=== PATIENT | male | born 1970 ===

== ENCOUNTER 2025-04-27 09:04 | Emergency (ER) | payer BC, SELFPAY ==
--- NOTE | ~2025-04-27 | CT_ITS ---
EXAMINATION: CT LUMBAR SPINE WITHOUT CONTRAST CLINICAL INFORMATION: Low back pain. COMPARISON: No prior. TECHNIQUE: CT imaging of the lumbar spine was done without IV contrast, utilizing spiral technique. Sagittal, coronal, and thin section axial reformatted images were constructed from the axial data set. This CT examination was performed using dose optimization techniques as appropriate, variously including the following: *Automated exposure control *Adjustment of mA and/or kV according to patient size (this includes techniques or standardized protocols for targeted exams where dose is matched to indication/reason for exam; i.e. extremities or head) *Use of iterative reconstruction technique FINDINGS: CORONAL ALIGNMENT: -There is a mild right convex scoliosis, apex at L2-3. SAGITTAL ALIGNMENT: - There is a normal lumbar lordosis. -There is no significant subluxation identified. LUMBOSACRAL JUNCTION: -Normal. There are 5 [id number] lumbar-type vertebral bodies. VERTEBRAL BODIES/BONE: -There is no fracture, compression deformity, or suspicious bone lesion. There is normal facet alignment bilaterally. There are multilevel hypertrophic degenerative facet changes present most significant at L3-S1. No pars defects. DISCS: -Severe disc degeneration is present L5-S1. -Mild to moderate disc degeneration is present at the other levels. SPINAL CANAL: -No abnormal developmental findings. AXIAL DISC SPACE IMAGES: T12-L1: No significant central canal or neural foraminal narrowing. L1-L2: Shallow disc bulging is present extending into both foraminal zones. There is mild central canal stenosis. There is mild bilateral neural foraminal stenosis. L2-L3: There is a diffuse disc osteophytic ridge complex extending into both foraminal zones concentrically. There are mild hypertrophic degenerative facet changes bilaterally. There is mild to moderate central canal stenosis, moderate bilateral subarticular recess stenosis, and mild bilateral neural foraminal stenosis. L3-L4: Likely arising from the L3-4 disc, there is a left lateral extrusion of disc material with cephalad migration to the upper one third of L3. This appears to cause mass effect upon the traversing left L3 root and may be responsible for L3 radiculopathy on the left. Otherwise, there is a diffuse disc osteophytic ridge complex present extending into both foraminal zones, moderate to severe hypertrophic degenerative facet changes bilaterally, posterior ligamentous thickening/infolding, resulting in moderate central canal stenosis, severe right and moderate to severe left subarticular recess stenosis, and moderate left greater than right neural foraminal stenosis. L4-L5: There is a central broad-based disc protrusion, moderate hypertrophic degenerative facet changes bilaterally, posterior ligamentous thickening/infolding resulting in moderate to severe central canal stenosis, severe bilateral subarticular recess stenosis left greater than right, and moderate left greater than right neural foraminal stenosis. L5-S1: There is a diffuse disc osteophytic ridge complex which is asymmetrically prominent into the right neural foramen and right lateral recess. This minimally deviates the traversing right S1 nerve root. There is no significant central canal stenosis. There is mild bilateral neural foraminal stenosis. IMAGED SI JOINTS: -Mild degenerative arthrosis bilaterally. PARAVERTEBRAL AND INCLUDED EXTRASPINAL SOFT TISSUES: -There is a 3 mm nonobstructing calculus in the left kidney upper pole. There is a left parapelvic renal cyst. The right kidney appears normal. -Aorta is nonaneurysmal. -Remainder of the imaged soft tissues appear normal. CT/CT lumbar spine wo IV con IMPRESSION: 1. No acute bony findings of the lumbar spine. 2. Moderate multilevel lumbar spondylosis, as detailed above. 3. There is a left lateral disc extrusion likely arising from the L3-4 disc with superior migration to the superior third of L3. This is likely causing mass effect upon the traversing and exiting left L3 nerve root. Correlate for left L3 radiculopathy. 4. There is moderate central canal stenosis at L3-4, and moderate to severe central canal stenosis at L4-5. See above for further detail. Electronically signed by: Teodoro Robertson MD 04/27/2025 10:21 AM EDT
[2025-04-27 09:10] VITALS: BP 128/88; PULSE 102; PULSE 104; RESP 13; O2SAT 98; BMI 26.3
--- NOTE | 2025-04-27 09:10 | ED_ITS ---
HPI - Abdominal Pain General Chief Complaint: Back Pain/Injury Stated Complaint: Back pain Time Seen by Provider: 04/27/25 09:10 Source: patient and EMS Mode of arrival: EMS Limitations: no limitations History of Present Illness ED Provider: HPI narrative: 54-year-old male with history of cardiomyopathy, status post cardiac transplant 10-15 years ago, presenting with back pain that started yesterday, no fevers or chills no numbness in the groin, he has left-sided back pain radiating to his leg, he went to urgent care yesterday and received cyclobenzaprine, some of the pain improved a him went to the gym today and pain returned and he was having a hard time moving, he called EMS was given 100 mcg of fentanyl IV feeling better. He states he has no chest pain no shortness of breath, he is on immunosuppressive medications without change low-dose steroid, including cyclosporine and Jardiance. No other trauma reported, no IV drug use, no recent surgeries or injections to the area. Related Data Previous Rx's ?Medication ?Instructions ?Recorded lidocaine 5 % topical patch 1 patch topical DAILY #15 ea 04/27/25 methylprednisolone 4 mg tablets in 4 mg PO DAILY #21 e a 04/27/25 a dose pack (Medrol (Beto)) oxycodone 5 mg tablet 5 mg PO Q6H PRN pain 4 days #14 04/27/25 tabs Allergies Allergy/AdvReac Type Severity Reaction Status Date / Time No Known Allergies Allergy Verified 04/27/25 09:21 Review of Systems Constitutional: Reports as per [facility] Social History Social History Advance Directives: No Advance Directives Information Provided: Yes Physical Exam ED Vital Signs: Vital Signs - 24 hr 04/27/25 09:10 04/27/25 10:00 Temperature 98 F Pulse Rate 104 H 101 H Respiratory Rate 13 18 Blood Pressure 139/90 H Pulse Oximetry 98 99 Oxygen Delivery Method Room Air Room Air BMI result Body Mass Index 26.3 Const Other: General: ?Appears of stated age ? ?PERRLA, EOMI, MMM, ? Neck: Supple, no LAD ? ?CV: RRR, no obvious murmurs appreciated ? ?Resp: ?No wheezing rales rhonchi no stridor moving air well ? Abd: ?Bowel sounds are present, no tenderness no rebound no rigidity ? ?MSK: FROM, strength 5/5 all extremities, patient has scoliosis, no midline tenderness, no tenderness over the SI, no motor or sensory deficits bilateral lower extremities, scar from prior right quad surgery ? Skin: Warm, dry, intact, ? ?Neuro: ?Alert and oriented x3, moving upper and lower extremities symmetrically, no obvious facial asymmetry noted, cranial nerves 2-12 intact Medical Decision Making Medical Decision Making [facility] Narrative: 9:36 AM 04/27/2025 (Dr. Bryson Galindo): Because patient has risk factors for immunosuppression, inflammatory conditions are considered therefore we will obtain blood work, we will also obtain CT to evaluate for any destructive lesions or any evidence for underlying osteomyelitis, he has no neurologic deficits nothing to suspect cauda equina that would necessitate emergent MRI 11:18 AM 04/27/2025 (Dr. Bryson Galindo): Patient re-evaluated, I have discussed CT findings with the him, his pain is much improved, see my discharge instructions Differential Diagnosis Differential Diagnoses: The differential diagnosis associated with the presentation includes (Diskitis, osteomyelitis, spinal epidural abscess, cauda equina, musculoskeletal pain) Admission/Observation Consideration of admission/observation: Escalation of care including admission/observation considered Lab Data [facility] Lab Attestation statement: I reviewed the patient's lab results. 04/27/25 09:53 04/27/25 09:53 Labs: Lab Results 04/27/25 Range/Units 09:53 WBC 5.8 (4.8-10.8) X10*3/uL RBC 5.50 (4.60-5.80) X10*6/uL Hgb 16.0 (14.0-18.0) g/dl Hct 45.9 (42.0-52.0) % MCV 83.5 (80.0-98.0) fL MCH 29.1 (27.0-33.0) pg MCHC 34.9 (31.0-36.0) g/dl RDW 12.8 (11.0-16.0) % Plt Count 159 L (160-400) X10*3/uL MPV 8.7 L (9.4-12.4) fL Immature Gran % (Auto) 0.3 (0.0-0.4) % Neut % (Auto) 83.6 H (45-73) % Lymph % (Auto) 8.5 L (20-40) % [place] % (Auto) 7.3 (2-11) % Eos % (Auto) 0.3 (0-4) % Baso % (Auto) 0.0 (0-2) % Lymph # (Auto) 0.5 L (1.2-4.9) X10*3/uL [place] # (Auto) 0.4 (0.1-1.2) X10*3/uL Eos # (Auto) 0.0 (0.0-0.4) X10*3/uL Baso # (Auto) 0.0 (0.0-0.2) X10*3/uL Abs Immat Gran (auto) 0.02 (0.00-0.03) X10*3/uL Absolute Neuts (auto) 4.8 (2.0-8.3) x10*3/uL Absolute Nucleated RBC 0.000 (0.0-0.012) X10*3/uL Nucleated RBC % (auto) 0.0 (0.0-0.2) /100WBC Sodium 139 (135-145) mmol/L Potassium 3.9 (3.3-5.1) mmol/L Chloride 106 (96-108) mmol/L Carbon Dioxide 22 (22-29) mmol/L Anion Gap 15 (12-20) BUN 16 (9-16) mg/dL Creatinine 1.22 (0.5-1.4) mg/dL Estim Creat Clear Calc 76.8 Estimated GFR > 60 Random Glucose 90 (60-115) mg/dL Calcium 9.6 (8.4-10.2) mg/dL Total Bilirubin 1.3 H (0.0-1.0) mg/dL AST 32 (5-37) U/L ALT 24 (0-40) U/L Alkaline Phosphatase 59 (39-117) U/L Total Protein 6.9 (6.5-8.0) g/dL Albumin 4.5 (3.5-5.0) g/dL Radiology Impression Discussion of test interpretation with radiology: I have reviewed the radiologist's reading. ( CT/CT lumbar spine wo IV con IMPRESSION: 1. No acute bony findings of the lumbar spine. 2. Moderate multilevel lumbar spondylosis, as detailed above. 3. There is a left lateral disc extrusion likely arising from the L3-4 disc with superior migration to the superior third of L3. ) Tests considered The following testing was considered but not selected: Lumbosacral MRI Prescription Management I considered prescription management with: Pain Medication Chronic Conditions Patient?s care impacted by: Diabetes and Other (Heart transplant) Medications Administered Discontinued Medications Generic Name Dose Route Start Last Admin Trade Name Freq PRN Reason Stop Dose Admin Ketorolac Tromethamine 15 mg 04/27/25 09:32 04/27/25 10:03 Ketorolac Tromethamine 15 Mg/Ml Vial IVPUSH 04/27/25 09:33 15 mg ONCE ONE Administration Oxycodone HCl 10 mg 04/27/25 09:32 04/27/25 10:03 Oxycodone Hcl Immed Release 5 Mg Tablet PO 04/27/25 09:33 10 mg ONCE ONE Administration Critical Care Time Critical Care Time Critical Care Time: Yes Total Critical Care Time: 35 Attestation: Time is exclusive of separately billable procedures. Time includes: direct patient care, patient reassessment, coordination of patient care, interpretation of data (laboratory data, pulse oximetry, arterial blood gases and chest xrays), review of patient's medical records, medical consultation and documentation of patient care. Procedures excluded from critical care time: central intravenous line placement and electrocardiography. Discharge Plan Discharge Clinical Impression: Lumbar radiculopathy Patient Disposition: Home, Self-Care Instructions: Lumbar Radiculopathy (ED) Additional Instructions: Please see below your CT findings, essentially the pain on the left side is consistent with L3 radiculopathy, I recommend that you start taking 975 mg of Tylenol every 6 hours around the clock for the next 2 days, use lidocaine patches daily, and then use oxycodone only if you need it, I recommend continuing steroid patch tomorrow, we discussed return precautions such as inability to urinate, numbness in your groin, and worsening pain, spiking fevers any other concerns otherwise follow up with the PCP, you may need outpatient MRI, physical therapy, or pain management referral any other issues concerns come back to the ER These are your CT findings: 1. No acute bony findings of the lumbar spine. 2. Moderate multilevel lumbar spondylosis, as detailed above. 3. There is a left lateral disc extrusion likely arising from the L3-4 disc with superior migration to the superior third of L3. This is likely causing mass effect upon the traversing and exiting left L3 nerve root. Correlate for left L3 radiculopathy. 4. There is moderate central canal stenosis at L3-4, and moderate to severe central canal stenosis at L4-5. See above for further detail. Prescriptions: New lidocaine 5 % adhesive patch,medicated 1 patch topical DAILY Qty: 15 0RF Rx Instructions: leave on most painful area for up to 12 hrs methylprednisolone [Medrol (Beto)] 4 mg tablets,dose pack 4 mg PO DAILY Qty: 21 0RF Rx Instructions: Day 1: 24 mg on day 1 administered as 8 mg before breakfast, 4 mg after lunch, 4 mg after supper, and 8 mg at bedtime or 24 mg as a single dose or divided into 2 or 3 doses upon initiation. Day 2: 20 mg on day 2 administered as 4 mg before breakfast, 4 mg after lunch, 4 mg after supper, and 8 mg at bedtime. Day 3: 16 mg on day 3 administered as 4 mg before breakfast, 4 mg after lunch, 4 mg after supper, and 4 mg at bedtime. Day 4: 12 mg on day 4 administered as 4 mg before breakfast, 4 mg after lunch, and 4 mg at bedtime. Day 5: 8 mg on day 5 administered as 4 mg before breakfast and 4 mg at bedtime. Day 6: 4 mg on day 6 administered as 4 mg before breakfast. oxycodone 5 mg tablet 5 mg PO Q6H PRN (Reason: pain) 4 Days Qty: 14 0RF Rx Instructions: Partial Fill upon patient request. Print Language: Omani
[2025-04-27 09:59] LABS: MANUAL DIFF FLAG NO
[2025-04-27 10:00] VITALS: BP 139/90; PULSE 101; RESP 18; TEMP 36.6; O2SAT 99
[2025-04-27 10:02] LABS: Hematocrit 45.9 % (42.0-52.0); Hemoglobin 16.0 g/dl (14.0-18.0); Imm Gran Abs Auto 0.02 X10*3/uL (0.00-0.03); Imm Gran Pct Auto 0.3 % (0.0-0.4); Lymphocytes Absolute Auto 0.5 X10*3/uL (1.2-4.9); Mean Corpuscular HGB Conc 34.9 g/dl (31.0-36.0); Mean Corpuscular Hemoglobin 29.1 pg (27.0-33.0); Mean Corpuscular Volume 83.5 fL (80.0-98.0); NRBC Abs Auto 0.000 X10*3/uL (0.0-0.012); NRBC Pct Auto 0.0 /100WBC (0.0-0.2); Platelet Count 159 X10*3/uL (160-400); Red Blood Count 5.50 X10*6/uL (4.60-5.80); White Blood Count 5.8 X10*3/uL (4.8-10.8)
[2025-04-27] MEDS: oxyCODONE HCl Immed Release 5 MG TABLET 10 MG PO (10:03)
[2025-04-27 10:15] LABS: Alanine Aminotransferase 24 U/L (0-40); Albumin Level 4.5 g/dL (3.5-5.0); Alkaline Phosphatase 59 U/L (39-117); Anion Gap 15 (12-20); Aspartate Amino Transferase 32 U/L (5-37); Blood Urea Nitrogen 16 mg/dL (9-16); Calcium 9.6 mg/dL (8.4-10.2); Carbon Dioxide 22 mmol/L (22-29); Chloride 106 mmol/L (96-108); Creatinine Clr Calc Pharmacy 76.8; Estimated Glomerular Filt Rate > 60; Potassium 3.9 mmol/L (3.3-5.1); Sodium 139 mmol/L (135-145); Total Protein 6.9 g/dL (6.5-8.0)
[2025-04-27 15:23] VITALS: BP 139/90; PULSE 101; RESP 18; TEMP 36.6; O2SAT 99
== END 2025-04-27 14:00 | disposition home or self-care (01) ==
PROVIDERS: Emergency Provider Emergency Medicine
DX: M54.16 Radiculopathy, lumbar region (principal); Z94.1 Heart transplant status
CPT/HCPCS: 36415; 72131; 80053; 85025; 96374; 99283; 99284; J1885

== ENCOUNTER → 2025-04-27 09:32 | Outpatient (BNV) | payer BC, SELFPAY | PROVIDERS: Emergency Provider Emergency Medicine; Visit Provider Radiology Diagnostic Radiology | DX: M48.061 Spinal stenosis, lumbar region without neurogenic claudication (principal) | CPT/HCPCS: 72131 ==